=== PATIENT | female | born 1990 | race American Indian/Alaskan Native ===

== ENCOUNTER 2018-01-08 10:15 | Emergency (ER) | payer MEDICAID, OTHER ==
[2018-01-08 10:46] VITALS: BP 130/86
[2018-01-08] MEDS ORDERED: TORADOL IM ONE (11:13)
--- NOTE | 2018-01-08 12:14 | Emergency Department Report ---
ED ENT HPI - General Chief complaint: Dental/Oral Stated complaint: TOOTHACHE Time Seen by Provider: 01/08/18 11:11 Source: patient Mode of arrival: Ambulatory Limitations: No Limitations - History of Present Illness Initial comments: This is a 27-year-old female nontoxic, well nourished in appearance, no acute signs of distress presents to the ED with c/o of right-sided toothache 2 weeks. Patient denies any facial swelling, drooling, fever, chills, nausea, vomiting, headache or stiff neck. Patient denies falling over the dentist due to no availability's. Patient denies any allergies or significant past medical history. MD complaint: tooth pain -: week(s) (2) Location: tooth # (27) 1 - tothache Severity: mild Severity scale (0 -10): 8 Quality: aching Consistency: constant Improves with: none Worsens with: none Associated Symptoms: gum swelling, toothache. denies: fever, cough, pain with swallowing, sore throat, tinnitus, hearing loss, discharge from ear, rhinorrhea - Related Data Previous Rx's Medication Instructions Recorded Last Taken Type Fluconazole [Diflucan] 150 mg PO ONCE #1 tablet 05/09/15 05/09/15 Rx Nitrofurantoin [place]/M-Cryst 100 mg PO Q12HR #14 capsule 05/09/15 05/09/15 Rx [Macrobid] Amoxicillin/K Clav Tab [Augmentin 1 tab PO Q12HR #20 tab 01/08/18 Unknown Rx 875 mg] Chlorhexidine Mouthwash [Peridex] 15 ml MM BID 10 Days bottle 01/08/18 Unknown Rx Ibuprofen [Motrin] 600 mg PO Q8H PRN #30 tablet 01/08/18 Unknown Rx Allergies Allergy/AdvReac Type Severity Reaction Status Date / Time No Known Allergies Allergy Verified 03/28/16 01:37 ED Dental HPI - General Chief complaint: Dental/Oral Stated complaint: TOOTHACHE Time Seen by Provider: 01/08/18 11:11 Source: patient Mode of arrival: Ambulatory Limitations: No Limitations - Related Data Previous Rx's Medication Instructions Recorded Last Taken Type Fluconazole [Diflucan] 150 mg PO ONCE #1 tablet 05/09/15 05/09/15 Rx Nitrofurantoin [place]/M-Cryst 100 mg PO Q12HR #14 capsule 05/09/15 05/09/15 Rx [Macrobid] Amoxicillin/K Clav Tab [Augmentin 1 tab PO Q12HR #20 tab 01/08/18 Unknown Rx 875 mg] Chlorhexidine Mouthwash [Peridex] 15 ml MM BID 10 Days bottle 01/08/18 Unknown Rx Ibuprofen [Motrin] 600 mg PO Q8H PRN #30 tablet 01/08/18 Unknown Rx Allergies Allergy/AdvReac Type Severity Reaction Status Date / Time No Known Allergies Allergy Verified 03/28/16 01:37 ED Review of Systems ROS: Stated complaint: TOOTHACHE Other details as noted in HPI Constitutional: denies: chills, fever Eyes: denies: eye pain, eye discharge, vision change ENT: dental pain. denies: ear pain, throat pain Respiratory: denies: cough, shortness of breath, wheezing Cardiovascular: denies: chest pain, palpitations Endocrine: no symptoms reported Gastrointestinal: denies: abdominal pain, nausea, diarrhea Genitourinary: denies: urgency, dysuria, discharge Musculoskeletal: denies: back pain, joint swelling, arthralgia Skin: denies: rash, lesions Neurological: denies: headache, weakness, paresthesias Psychiatric: denies: anxiety, depression Hematological/Lymphatic: denies: easy bleeding, easy bruising ED Past Medical Hx - Past Medical History Hx Hypertension: No Hx Congestive Heart Failure: No Hx Diabetes: No Hx Deep Vein Thrombosis: No Hx Renal Disease: No Hx Sickle Cell Disease: No Hx Seizures: No Hx Asthma: No Hx COPD: No Hx HIV: No - Surgical History Additional Surgical History: D&C for - Social History Smoking Status: Never Smoker Substance Use Type: None - Medications Home Medications: Home Medications Medication Instructions Recorded Confirmed Last Taken Type Fluconazole [Diflucan] 150 mg PO ONCE #1 tablet 05/09/15 03/28/16 05/09/15 Rx Nitrofurantoin [place]/M-Cryst 100 mg PO Q12HR #14 capsule 05/09/15 03/28/16 Rx [Macrobid] Amoxicillin/K Clav Tab [Augmentin 1 tab PO Q12HR #20 tab 01/08/18 Unknown Rx 875 mg] Chlorhexidine Mouthwash [Peridex] 15 ml MM BID 10 Days bottle 01/08/18 Unknown Rx Ibuprofen [Motrin] 600 mg PO Q8H PRN #30 tablet 01/08/18 Unknown Rx ED Physical Exam - General Limitations: No Limitations General appearance: alert, in no apparent distress - Head Head exam: Present: atraumatic, normocephalic - Eye Eye exam: Present: normal appearance - ENT ENT exam: Present: mucous membranes moist, TM's normal bilaterally, normal external ear exam - Expanded ENT Exam Expanded Ear exam: Present: normal external inspection Mouth exam: Present: normal external inspection, tongue normal. Absent: drooling, trismus, muffled voice, tongue elevation, laceration Teeth exam: Present: dental caries, fractured tooth # (27), dental tenderness # (27), gingival enlargement, other (No facial swelling. No abscess. ) Throat exam: Positive: normal inspection, other (Uvula midline. ). Negative: tonsillar erythema, tonsillomegaly, tonsillar exudate, R peritonsillar mass, L peritonsillar mass - Neck Neck exam: Present: normal inspection, full ROM. Absent: tenderness, meningismus, lymphadenopathy, thyromegaly - Respiratory Respiratory exam: Present: normal lung sounds bilaterally. Absent: respiratory distress - Cardiovascular Cardiovascular Exam: Present: regular rate, normal rhythm. Absent: systolic murmur, diastolic murmur, rubs, gallop - GI/Abdominal GI/Abdominal exam: Present: soft, normal bowel sounds - Extremities Exam Extremities exam: Present: normal inspection - Back Exam Back exam: Present: normal inspection - Neurological Exam Neurological exam: Present: alert, oriented X3 - Psychiatric Psychiatric exam: Present: normal affect, normal mood - Skin Skin exam: Present: warm, dry, intact, normal color. Absent: rash ED Course Vital Signs 01/08/18 10:43 Temperature 98.6 F Pulse Rate 80 Respiratory 16 Rate Blood Pressure 130/86 O2 Sat by Pulse 100 Oximetry - Reevaluation(s) Reevaluation #1: 01/08/18 12:11 Patient is speaking in full sentences with no signs of distress noted. Critical care attestation.: If time is entered above; I have spent that time in minutes in the direct care of this critically ill patient, excluding procedure time. ED Disposition Clinical Impression: Dentin caries, Gingivitis Disposition: DC- TO HOME OR SELFCARE Is pt being admited?: No Does the pt Need Aspirin: No Condition: Stable Instructions: Dental Caries (ED), Gingivitis (ED) Additional Instructions: Follow-up with a dentist in 3-5 days or if symptoms worsen and continue return to emergency room as soon as possible. Prescriptions: Amoxicillin/K Clav Tab [Augmentin 875 mg] 1 tab PO Q12HR #20 tab Chlorhexidine Mouthwash [Peridex] 15 ml MM BID 10 Days bottle Ibuprofen [Motrin] 600 mg PO Q8H PRN #30 tablet PRN Reason: Pain Referrals: PRIMARY CARE, [Primary Care Provider] - 3-5 Days [facility] [Outside] - 3-5 Days MELODY KHANNA MD [Staff Physician] - 3-5 Days Forms: Work/School Release Form(ED)
== END 2018-01-08 12:18 | disposition home or self-care (01) ==
LOC: ED 10:15
DX: K05.10 Chronic gingivitis, plaque induced (principal)
CPT/HCPCS: 96372; 99282; J1885

== ENCOUNTER 2018-04-03 17:38 | Emergency (ER) | payer MEDICAID ==
[2018-04-03 17:43] VITALS: BP 123/79
== END 2018-04-03 20:55 | disposition left against medical advice (07) ==
LOC: ED 17:38
DX: K08.89 Other specified disorders of teeth and supporting structures (principal); Z53.21 Procedure and treatment not carried out due to patient leaving prior to being seen by health care provider

== ENCOUNTER 2018-04-20 18:56 | Emergency (ER) | payer MEDICAID ==
[2018-04-20 20:10] VITALS: BP 132/91
[2018-04-20] MEDS ORDERED: MOTRIN PO ONE (21:33)
[2018-04-20] MEDS ORDERED: TORADOL IM ONE (21:45)
[2018-04-20] MEDS ORDERED: NORCO 7.5/325 PO ONE (21:45)
--- NOTE | 2018-04-20 22:10 | Emergency Department Report ---
ED ENT HPI - General Chief complaint: Dental/Oral Stated complaint: TOOTH PAIN Time Seen by Provider: 04/20/18 21:15 Source: patient Mode of arrival: Ambulatory Limitations: No Limitations - History of Present Illness Initial comments: This is a 27-year-old female brought by mother nontoxic, well nourished in appearance, no acute signs of distress presents to the ED with c/o of left lower toothache status post tooth extraction that occurred today. Patient stated that she has been prescribed [place] 5 mg which has not been helping her for pain and patient is expressing pain now. Patient describes toothache as aching level of 8 out of 10. Patient denies any facial swelling. Patient denies any numbness, tingling, fever, chills, headache, stiff neck, abdominal pain, chest pain, shortness of breath. Patient denies any drug allergies or significant past medical history. MD complaint: tooth pain -: This afternoon 1 - pain in here with extracted tooth Severity: mild Severity scale (0 -10): 8 Quality: aching Consistency: constant Improves with: none Worsens with: none Associated Symptoms: gum swelling. denies: fever, cough, toothache, pain with swallowing, sore throat, tinnitus, hearing loss, discharge from ear, rhinorrhea - Related Data Previous Rx's Medication Instructions Recorded Last Taken Type Fluconazole [Diflucan] 150 mg PO ONCE #1 tablet 05/09/15 05/09/15 Rx Nitrofurantoin [place]/M-Cryst 100 mg PO Q12HR #14 capsule 05/09/15 05/09/15 Rx [Macrobid] Amoxicillin/K Clav Tab [Augmentin 1 tab PO Q12HR #20 tab 01/08/18 Unknown Rx 875 mg] Chlorhexidine Mouthwash [Peridex] 15 ml MM BID 10 Days bottle 01/08/18 Unknown Rx Ibuprofen [Motrin] 600 mg PO Q8H PRN #30 tablet 01/08/18 Unknown Rx HYDROcodone/APAP 10-325 [[place] 1 each PO Q6HR PRN #15 tablet 04/20/18 Unknown Rx 10/325] Ibuprofen [Motrin] 600 mg PO Q8H PRN #30 tablet 04/20/18 Unknown Rx Allergies Allergy/AdvReac Type Severity Reaction Status Date / Time No Known Allergies Allergy Verified 03/28/16 01:37 ED Dental HPI - General Chief complaint: Dental/Oral Stated complaint: TOOTH PAIN Time Seen by Provider: 04/20/18 21:15 Source: patient Mode of arrival: Ambulatory Limitations: No Limitations - Related Data Previous Rx's Medication Instructions Recorded Last Taken Type Fluconazole [Diflucan] 150 mg PO ONCE #1 tablet 05/09/15 05/09/15 Rx Nitrofurantoin [place]/M-Cryst 100 mg PO Q12HR #14 capsule 05/09/15 05/09/15 Rx [Macrobid] Amoxicillin/K Clav Tab [Augmentin 1 tab PO Q12HR #20 tab 01/08/18 Unknown Rx 875 mg] Chlorhexidine Mouthwash [Peridex] 15 ml MM BID 10 Days bottle 01/08/18 Unknown Rx Ibuprofen [Motrin] 600 mg PO Q8H PRN #30 tablet 01/08/18 Unknown Rx HYDROcodone/APAP 10-325 [[place] 1 each PO Q6HR PRN #15 tablet 04/20/18 Unknown Rx 10/325] Ibuprofen [Motrin] 600 mg PO Q8H PRN #30 tablet 04/20/18 Unknown Rx Allergies Allergy/AdvReac Type Severity Reaction Status Date / Time No Known Allergies Allergy Verified 03/28/16 01:37 ED Review of Systems ROS: Stated complaint: TOOTH PAIN Other details as noted in HPI Constitutional: denies: chills, fever Eyes: denies: eye pain, eye discharge, vision change ENT: denies: ear pain, throat pain Respiratory: denies: cough, shortness of breath, wheezing Cardiovascular: denies: chest pain, palpitations Endocrine: no symptoms reported Gastrointestinal: denies: abdominal pain, nausea, diarrhea Genitourinary: denies: urgency, dysuria, discharge Musculoskeletal: denies: back pain, joint swelling, arthralgia Skin: denies: rash, lesions Neurological: denies: headache, weakness, paresthesias Psychiatric: denies: anxiety, depression Hematological/Lymphatic: denies: easy bleeding, easy bruising ED Past Medical Hx - Past Medical History Hx Hypertension: No Hx Congestive Heart Failure: No Hx Diabetes: No Hx Deep Vein Thrombosis: No Hx Renal Disease: No Hx Sickle Cell Disease: No Hx Seizures: No Hx Asthma: No Hx COPD: No Hx HIV: No - Surgical History Additional Surgical History: D&C for - Social History Smoking Status: Never Smoker Substance Use Type: None - Medications Home Medications: Home Medications Medication Instructions Recorded Confirmed Last Taken Type Fluconazole [Diflucan] 150 mg PO ONCE #1 tablet 05/09/15 03/28/16 05/09/15 Rx Nitrofurantoin [place]/M-Cryst 100 mg PO Q12HR #14 capsule 05/09/15 03/28/16 Rx [Macrobid] Amoxicillin/K Clav Tab [Augmentin 1 tab PO Q12HR #20 tab 01/08/18 Unknown Rx 875 mg] Chlorhexidine Mouthwash [Peridex] 15 ml MM BID 10 Days bottle 01/08/18 Unknown Rx Ibuprofen [Motrin] 600 mg PO Q8H PRN #30 tablet 01/08/18 Unknown Rx HYDROcodone/APAP 10-325 [[place] 1 each PO Q6HR PRN #15 tablet 04/20/18 Unknown Rx 10/325] Ibuprofen [Motrin] 600 mg PO Q8H PRN #30 tablet 04/20/18 Unknown Rx ED Physical Exam - General Limitations: No Limitations General appearance: alert, in no apparent distress - Head Head exam: Present: atraumatic, normocephalic - Eye Eye exam: Present: normal appearance Pupils: Present: normal accommodation - ENT ENT exam: Present: mucous membranes moist, TM's normal bilaterally, normal external ear exam - Expanded ENT Exam Expanded Ear exam: Present: normal external inspection Mouth exam: Present: normal external inspection, tongue normal. Absent: drooling, trismus, muffled voice, tongue elevation, laceration Teeth exam: Present: normal inspection, other (suture strings present in the area of extracted tooth). Absent: dental caries, fractured tooth #, dental tenderness #, gingival enlargement Throat exam: Positive: normal inspection, other (Uvula midline. No abscess or swelling noted. ). Negative: tonsillar erythema, tonsillomegaly, tonsillar exudate, R peritonsillar mass, L peritonsillar mass - Neck Neck exam: Present: normal inspection, full ROM. Absent: tenderness, meningismus, lymphadenopathy - Respiratory Respiratory exam: Present: normal lung sounds bilaterally. Absent: respiratory distress - Cardiovascular Cardiovascular Exam: Present: regular rate, normal rhythm. Absent: systolic murmur, diastolic murmur, rubs, gallop - GI/Abdominal GI/Abdominal exam: Present: soft, normal bowel sounds - Extremities Exam Extremities exam: Present: normal inspection - Back Exam Back exam: Present: normal inspection - Neurological Exam Neurological exam: Present: alert, oriented X3 - Psychiatric Psychiatric exam: Present: normal affect, normal mood - Skin Skin exam: Present: warm, dry, intact, normal color. Absent: rash ED Course Vital Signs 04/20/18 20:07 Temperature 97.8 F Pulse Rate 70 Respiratory 16 Rate Blood Pressure 132/91 O2 Sat by Pulse 97 Oximetry - Reevaluation(s) Reevaluation #1: 04/20/18 22:09 Patient is speaking in full sentences with no signs of distress noted. ED Medical Decision Making - Medical Decision Making Patient received Toradol and [place] in the ED which stated that symptoms has resolved and is subsiding. Patient was instructed not to operate any machinery as a discharge due to possible drowsiness and patient's mother is currently the boom truck driver states short of the patient home. At time of discharge, the patient does not seem toxic or ill in appearance. No acute signs of distress noted. Patient agrees to discharge treatment plan of care. No further questions noted by the patient. Critical care attestation.: If time is entered above; I have spent that time in minutes in the direct care of this critically ill patient, excluding procedure time. ED Disposition Clinical Impression: Pain, dental Disposition: DC-01 TO HOME OR SELFCARE Is pt being admited?: No Does the pt Need Aspirin: No Condition: Stable Additional Instructions: Follow-up with a dentist in 3-5 days or if symptoms worsen and continue return to emergency room as soon as possible. Stop taking [place] 5 mg that was prescribed to you and taking [place] 10 mg for pain as needed as prescribed. Prescriptions: HYDROcodone/APAP 10-325 [[place] 10/325] 1 each PO Q6HR PRN #15 tablet PRN Reason: Pain Ibuprofen [Motrin] 600 mg PO Q8H PRN #30 tablet PRN Reason: Pain Referrals: PRIMARY CARE, [Primary Care Provider] - 3-5 Days MELODY KHANNA MD [Staff Physician] - 3-5 Days [facility] [Outside] - 3-5 Days Forms: Work/School Release Form(ED)
== END 2018-04-20 22:20 | disposition home or self-care (01) ==
LOC: ED 18:56
DX: K08.89 Other specified disorders of teeth and supporting structures (principal)
CPT/HCPCS: 96372; 99282; J1885

== ENCOUNTER 2018-06-26 07:20 | Emergency (ER) | payer MEDICAID | END 2018-06-26 07:25 | disposition left against medical advice (07) | LOC: ED 07:20 | DX: K08.89 Other specified disorders of teeth and supporting structures (principal); Z53.21 Procedure and treatment not carried out due to patient leaving prior to being seen by health care provider ==

== ENCOUNTER 2018-06-29 15:07 | Emergency (ER) | payer MEDICAID ==
[2018-06-29 15:18] VITALS: BP 119/81
== END 2018-06-29 15:40 | disposition left against medical advice (07) ==
LOC: ED 15:07
DX: K08.89 Other specified disorders of teeth and supporting structures (principal); Z53.21 Procedure and treatment not carried out due to patient leaving prior to being seen by health care provider

== ENCOUNTER 2018-07-24 09:56 | Emergency (ER) | payer MEDICAID ==
[2018-07-24 10:06] VITALS: BP 121/80
--- NOTE | 2018-07-24 10:59 | Emergency Department Report ---
ED Recheck HPI - General Chief Complaint: Dental/Oral Stated Complaint: BOTTOM RT TOOTH ACHE Time Seen by Provider: 07/24/18 10:39 Source: patient Mode of arrival: Ambulatory Limitations: No Limitations - Related Data Previous Rx's Medication Instructions Recorded Last Taken Type Fluconazole [Diflucan] 150 mg PO ONCE #1 tablet 05/09/15 05/09/15 Rx Nitrofurantoin [place]/M-Cryst 100 mg PO Q12HR #14 capsule 05/09/15 05/09/15 Rx [Macrobid] Amoxicillin/K Clav Tab [Augmentin 1 tab PO Q12HR #20 tab 01/08/18 Unknown Rx 875 mg] Chlorhexidine Mouthwash [Peridex] 15 ml MM BID 10 Days bottle 01/08/18 Unknown Rx Ibuprofen [Motrin] 600 mg PO Q8H PRN #30 tablet 01/08/18 Unknown Rx HYDROcodone/APAP 10-325 [[place] 1 each PO Q6HR PRN #15 tablet 04/20/18 Unknown Rx 10/325] Ibuprofen [Motrin] 600 mg PO Q8H PRN #30 tablet 04/20/18 Unknown Rx Allergies Allergy/AdvReac Type Severity Reaction Status Date / Time No Known Allergies Allergy Verified 06/29/18 15:18 ED Review of Systems ROS: Stated complaint: BOTTOM RT TOOTH ACHE Other details as noted in HPI ED Past Medical Hx - Past Medical History Previous Medical History?: No Hx Hypertension: No Hx Congestive Heart Failure: No Hx Diabetes: No Hx Deep Vein Thrombosis: No Hx Renal Disease: No Hx Sickle Cell Disease: No Hx Seizures: No Hx Asthma: No Hx COPD: No Hx HIV: No - Surgical History Past Surgical History?: Yes Additional Surgical History: D&C for - Social History Smoking Status: Never Smoker Substance Use Type: None - Medications Home Medications: Home Medications Medication Instructions Recorded Confirmed Last Taken Type Fluconazole [Diflucan] 150 mg PO ONCE #1 tablet 05/09/15 03/28/16 05/09/15 Rx Nitrofurantoin [place]/M-Cryst 100 mg PO Q12HR #14 capsule 05/09/15 03/28/16 Rx [Macrobid] Amoxicillin/K Clav Tab [Augmentin 1 tab PO Q12HR #20 tab 01/08/18 Unknown Rx 875 mg] Chlorhexidine Mouthwash [Peridex] 15 ml MM BID 10 Days bottle 01/08/18 Unknown Rx Ibuprofen [Motrin] 600 mg PO Q8H PRN #30 tablet 01/08/18 Unknown Rx HYDROcodone/APAP 10-325 [[place] 1 each PO Q6HR PRN #15 tablet 04/20/18 Unknown Rx 10/325] Ibuprofen [Motrin] 600 mg PO Q8H PRN #30 tablet 04/20/18 Unknown Rx ED Physical Exam - General Limitations: No Limitations ED Course Vital Signs 07/24/18 10:04 Temperature 99.0 F Pulse Rate 82 Respiratory 20 Rate Blood Pressure 121/80 O2 Sat by Pulse 98 Oximetry Critical care attestation.: If time is entered above; I have spent that time in minutes in the direct care of this critically ill patient, excluding procedure time. ED Disposition Condition: Stable Referrals: PRIMARY CARE, [Primary Care Provider] - 3-5 Days
--- NOTE | 2018-07-24 11:00 | Emergency Department Report ---
HPI - General Chief Complaint: Dental/Oral Time Seen by Provider: 07/24/18 10:39 - HPI HPI: This is a 27-year-old female here reported that she is having right lower toothache and left upper toothache. She said this is been ongoing and she just got her insurance card and she will need to schedule an appointment for a dentist. He has she said the pain has been going on for 2 weeks off and on and right now it is 10/10. She reports that she has multiple missing teeth. Pain is achy. Denies any nasal congestion, drainage or sore throat. Denies any cough, shortness of breath or chest pain. She says she took ibuprofen for pain with no relief. No alleviated factors but reports pain is worse when she opens her Ben when she eats. ED Past Medical Hx - Past Medical History Previous Medical History?: No Hx Hypertension: No Hx Congestive Heart Failure: No Hx Diabetes: No Hx Deep Vein Thrombosis: No Hx Renal Disease: No Hx Sickle Cell Disease: No Hx Seizures: No Hx Asthma: No Hx COPD: No Hx HIV: No - Surgical History Past Surgical History?: Yes Additional Surgical History: D&C for - Family History Family history: hypertension - Social History Smoking Status: Never Smoker Substance Use Type: None - Medications Home Medications: Home Medications Medication Instructions Recorded Confirmed Last Taken Type Fluconazole [Diflucan] 150 mg PO ONCE #1 tablet 05/09/15 03/28/16 05/09/15 Rx Nitrofurantoin [place]/M-Cryst 100 mg PO Q12HR #14 capsule 05/09/15 03/28/16 Rx [Macrobid] Amoxicillin/K Clav Tab [Augmentin 1 tab PO Q12HR #20 tab 01/08/18 Unknown Rx 875 mg] Chlorhexidine Mouthwash [Peridex] 15 ml MM BID 10 Days bottle 01/08/18 Unknown Rx Ibuprofen [Motrin] 600 mg PO Q8H PRN #30 tablet 01/08/18 Unknown Rx HYDROcodone/APAP 10-325 [[place] 1 each PO Q6HR PRN #15 tablet 04/20/18 Unknown Rx 10/325] Ibuprofen [Motrin] 600 mg PO Q8H PRN #30 tablet 04/20/18 Unknown Rx Acetaminophen/Codeine [Tylenol 1 tab PO Q6H PRN #14 tab 07/24/18 Unknown Rx /Codeine # 3 tab] Clindamycin [Clindamycin CAP] 300 mg PO Q8H 10 Days #30 cap 07/24/18 Unknown Rx Ibuprofen [Motrin] 800 mg PO Q8HR PRN #15 tablet 07/24/18 Unknown Rx ED Review of Systems ROS: Stated complaint: BOTTOM RT TOOTH ACHE Other details as noted in HPI Constitutional: denies: chills, fever Eyes: denies: eye pain, eye discharge, vision change ENT: dental pain. denies: ear pain, throat pain, hearing loss, congestion Respiratory: denies: cough, shortness of breath, SOB with exertion, SOB at rest , wheezing Cardiovascular: denies: chest pain, palpitations, edema, syncope Musculoskeletal: denies: back pain, arthralgia Skin: denies: rash, lesions Neurological: denies: headache Psychiatric: denies: depression Physical Exam - Physical Exam Vital Signs: Vital Signs 07/24/18 10:04 Temperature 99.0 F Pulse Rate 82 Respiratory 20 Rate Blood Pressure 121/80 O2 Sat by Pulse 98 Oximetry General: This is a 27-year-old female well-nourished well-developed in no acute distress Physical Exam: Head: Normocephalic atraumatic. Scalp examination and normal. Nontender to palpate. No abrasion, contusion or hematoma noted. Mouth: Oral mucosa moist, tongue is normal, uvula is midline, no [employer] or drooling , oral airways patent and uvula is midline. Tooth #15 with some tenderness to palpate with cavity. Positive gingivitis notedn 29-positive cavity and tenderness to palpate around gumline. She has multiple cavities and multiple missing teeth. Neck: No breathing or stridor. Supple, no tracheal deviation, no lymphadenopathy and full range of motion Ears: Bilateral TMs pearly perez and bilateral EAC normal exam. Triglycerides nontender to palpate, no mastoid bone tenderness. Nose: Nasal mucosa without any erythema or swelling or drainage. Bilateral frontal and mastoid sinuses nontender to palpate. Nasal septum normal and nontender to palpate Eyes: Bilateral pupils equal and reactive to light, conjunctival injection or icterus. Bilateral EOM intact and normal accommodation. Lids are normal. She has swelling below her lower lids that is not erythema and nontender to palpate. No induration and no sign of cellulitis. Skin: Clean dry and intact, no rash or lesions. Extremity: No cce. + 2 pulses in all extremities, no neurovascular compromise Mood: Normal mood and behavior ED Course Vital Signs 07/24/18 10:04 Temperature 99.0 F Pulse Rate 82 Respiratory 20 Rate Blood Pressure 121/80 O2 Sat by Pulse 98 Oximetry - Reevaluation(s) Reevaluation #1: 07/24/18 12:47 Is given Motrin 80 mg a toothache which helped her pain and she was started on clindamycin 300 mg by mouth for gingivitis and cavities. ED Medical Decision Making - Medical Decision Making This is a 27-year-old female here report that she is having dental pain and need to be evaluated Assessment/plan 1: Dental caries and gingivitis-patient is started on clindamycin 300 mg and will send home on clindamycin. 2: Toothache-started on Motrin 800 mg by mouth for relief of pain and will send him home on Motrin and Tylenol 3. Patient educated on diagnosis, medication and treatment plan and I discussed with her she needs to follow up with dentist to call [facility] to schedule an appointment for evaluation and treatment of gingivitis and dental cavities. She voiced understanding and discharged home in stable condition. Vital signs stable she is afebrile and pain is better. She was given prescription for Motrin, Tylenol No. 3 and clindamycin Critical care attestation.: If time is entered above; I have spent that time in minutes in the direct care of this critically ill patient, excluding procedure time. ED Disposition Clinical Impression: Toothache, Gingivitis, Dental caries Disposition: - TO HOME OR SELFCARE Is pt being admited?: No Does the pt Need Aspirin: No Condition: Stable Instructions: Gingivitis (ED), Dental Caries (ED), Toothache (ED) Additional Instructions: Please follow up with dentist as discussed. See alternative dentist and discharge instruction paperwork if needed. Take Motrin for mild to moderate pain and please take this medication with food. Take Tylenol 3 for severe pain and please do not drive or operate heavy machinery while taking this medication. Take clindamycin as prescribed. Please see floss twice daily Gargle listerine mouthwash twice daily Referrals: PRIMARY CARE, [Primary Care Provider] - 3-5 Days [facility] [Outside] - 3-5 Days [facility] [Outside] - 3-5 Days Forms: Accompanied Note, Work/School Release Form(ED)
[2018-07-24] MEDS ORDERED: MOTRIN PO ONE (11:07)
[2018-07-24] MEDS ORDERED: CLEOCIN PO ONE (11:07)
== END 2018-07-24 13:19 | disposition home or self-care (01) ==
LOC: ED 09:56
DX: K08.89 Other specified disorders of teeth and supporting structures (principal); K02.9 Dental caries, unspecified
CPT/HCPCS: 99282

== ENCOUNTER 2019-03-16 16:24 | Emergency (ER) | payer MEDICAID ==
--- NOTE | 2019-03-16 18:19 | Emergency Department Report ---
Chief Complaint: Dental/Oral Stated Complaint: TOOTHACHE Time Seen by Provider: 03/16/19 18:17 - HPI History of Present Illness: top left dental pain AND weakness/exhausted pmh last month VSS pmh none rx none psh none no c/e/drugs mse MSE screening note: Focused history and physical exam performed. Due to findings the following was ordered: ED Disposition for MSE Condition: Stable
[2019-03-16 19:27] LABS: Hematocrit 39.1 % (30.3-42.9); Hemoglobin 12.7 gm/dl (10.1-14.3); Mean Corpuscular HGB Conc 33 % (30-34); Mean Corpuscular Volume 84 fl (79-97); Platelet Count 236 K/mm3 (140-440); Red Blood Count 4.64 M/mm3 (3.65-5.03); Red Cell Distribution Width 14.8 % (13.2-15.2)
[2019-03-16 19:48] LABS: BUN/Creatinine Ratio 14; Blood Urea Nitrogen 10 mg/dL (7-17); Calcium 9.6 mg/dL (8.4-10.2); Hemolysis Index 11
[2019-03-16 20:05] LABS: Basophils % (Auto) 0.6 % (0.0-1.8); Eosinophils # (Auto) 0.5 K/mm3 (0.0-0.4); Eosinophils % (Auto) 5.9 % (0.0-4.3); Lymphocytes # (Auto) 2.4 K/mm3 (1.2-5.4); Lymphocytes % (Auto) 30.3 % (13.4-35.0); Monocytes # (Auto) 0.5 K/mm3 (0.0-0.8); Monocytes % (Auto) 6.8 % (0.0-7.3)
[2019-03-16 20:35] LABS: Bacteria,Urine 1+ /HPF (Negative); Bilirubin,Urine NEG (Negative); Blood,Urine NEG (Negative); Color,Urine Yellow (Yellow); Mucus,Urine 3+ /HPF; Protein,Urine <15 mg/dL mg/dL (Negative)
[2019-03-16 20:42] LABS: HCG Qualitative,Urine Negative (Negative)
--- NOTE | 2019-03-16 21:01 | Emergency Department Report ---
ED ENT HPI - General Chief complaint: Dental/Oral Stated complaint: TOOTHACHE Time Seen by Provider: 03/16/19 18:17 Source: patient Mode of arrival: Ambulatory Limitations: No Limitations - History of Present Illness Initial comments: Patient is a 28-year-old female with no past medical history presents to the ED with complaint of acute onset assistance area maxillary premolar molar toothaches and swollen gums as well as headache for the last 1 month. Patient states that she's never been able to see a dentist because of her schedule. Patient also complains of persistent generalized weakness and fatigue for the last 2 weeks. Patient denies fever, chills, nausea, vomiting, dizziness, sore throat, nasal and sinus congestion, neck pain, chronic, change in urination, chest pain or shortness of breath and abdominal pain. MD complaint: tooth pain, other (headache) -: Gradual, week(s) (4) Location: tooth # (bilateral maxillary premolar and molar toothaches, swollen gums) Severity: moderate Severity scale (0 -10): 6 Quality: aching, sharp, constant Consistency: constant Improves with: none Worsens with: eating Context- Dental: history of dental caries, poor dental care Associated Symptoms: gum swelling, toothache. denies: fever, cough, pain with swallowing, sore throat, tinnitus, hearing loss, discharge from ear, rhinorrhea - Related Data Previous Rx's Medication Instructions Recorded Last Taken Type Acetaminophen/Codeine [Tylenol 1 tab PO Q6H PRN 3 Days #12 tab 03/16/19 Unknown Rx /Codeine # 3 tab] Ketorolac [Toradol] 10 mg PO Q6H PRN #20 tablet 03/16/19 Unknown Rx cephALEXin [Keflex] 500 mg PO Q6HR #40 cap 03/16/19 Unknown Rx Allergies Allergy/AdvReac Type Severity Reaction Status Date / Time No Known Allergies Allergy Verified 03/16/19 16:27 ED Dental HPI - General Chief complaint: Dental/Oral Stated complaint: TOOTHACHE Time Seen by Provider: 03/16/19 18:17 Source: patient Mode of arrival: Ambulatory Limitations: No Limitations - History of Present Illness Initial comments: Patient is a 28-year-old female with no past medical history presents to the ED with complaint of acute onset assistance area maxillary premolar molar toothaches and swollen gums as well as headache for the last 1 month. Patient states that she's never been able to see a dentist because of her schedule. Patient also complains of persistent generalized weakness and fatigue for the last 2 weeks. Patient denies fever, chills, nausea, vomiting, dizziness, sore throat, nasal and sinus congestion, neck pain, chronic, change in urination, chest pain or shortness of breath and abdominal pain. MD complaint: tooth pain, other (headache) -: Gradual, week(s) (4) 1 - swollen and painful gums, toothache 2 - swollen painful gums, toothache Severity: moderate Quality: aching, sharp Consistency: constant Improves with: none Worsens with: eating, chewing, hot/cold liquids Context- Dental: history of dental caries, poor dental care Dental Associated Symptons: Yes: Headache, Gum Swelling. No: Earache, Sore Throat, Fever - Related Data Previous Rx's Medication Instructions Recorded Last Taken Type Acetaminophen/Codeine [Tylenol 1 tab PO Q6H PRN 3 Days #12 tab 03/16/19 Unknown Rx /Codeine # 3 tab] Ketorolac [Toradol] 10 mg PO Q6H PRN #20 tablet 03/16/19 Unknown Rx cephALEXin [Keflex] 500 mg PO Q6HR #40 cap 03/16/19 Unknown Rx Allergies Allergy/AdvReac Type Severity Reaction Status Date / Time No Known Allergies Allergy Verified 03/16/19 16:27 ED Review of Systems ROS: Stated complaint: TOOTHACHE Other details as noted in HPI Comment: All other systems reviewed and negative Constitutional: no symptoms reported, see HPI. denies: chills, diaphoresis, fever, malaise, weakness Eyes: as per HPI. denies: eye pain, eye discharge, vision change ENT: as per HPI, dental pain, other (swollen gums). denies: ear pain, throat pain, hearing loss, epistaxis, congestion Respiratory: no symptoms reported, see HPI. denies: cough, orthopnea, shortness of breath, SOB with exertion, SOB at rest, wheezing Cardiovascular: as per HPI. denies: chest pain, palpitations, syncope, paroxysmal nocturnal dyspnea Endocrine: no symptoms reported, see HPI. denies: excessive sweating, flushing, intolerance to cold, increased hunger, increased thirst, increased urine Gastrointestinal: as per HPI. denies: abdominal pain, nausea, vomiting, diarrhea, constipation, hematemesis, hematochezia Genitourinary: as per HPI. denies: urgency, dysuria, hematuria, discharge, dyspareunia Musculoskeletal: as per HPI. denies: back pain, joint swelling, arthralgia, myalgia Skin: as per HPI. denies: rash, lesions, change in color, change in hair/nails Neurological: as per HPI, headache. denies: weakness, numbness, paresthesias, confusion, vertigo Psychiatric: as per HPI. denies: anxiety Hematological/Lymphatic: as per HPI ED Past Medical Hx - Past Medical History Previous Medical History?: No Hx Hypertension: No Hx Congestive Heart Failure: No Hx Diabetes: No Hx Deep Vein Thrombosis: No Hx Renal Disease: No Hx Sickle Cell Disease: No Hx Seizures: No Hx Asthma: No Hx COPD: No Hx HIV: No - Surgical History Additional Surgical History: D&C for - Social History Smoking Status: Never Smoker - Medications Home Medications: Home Medications Medication Instructions Recorded Confirmed Last Taken Type Acetaminophen/Codeine [Tylenol 1 tab PO Q6H PRN 3 Days #12 tab 03/16/19 Unknown Rx /Codeine # 3 tab] Ketorolac [Toradol] 10 mg PO Q6H PRN #20 tablet 03/16/19 Unknown Rx cephALEXin [Keflex] 500 mg PO Q6HR #40 cap 03/16/19 Unknown Rx ED Physical Exam - General Limitations: No Limitations General appearance: alert, in no apparent distress, anxious - Head Head exam: Present: atraumatic, normocephalic, normal inspection - Eye Eye exam: Present: normal appearance, PERRL, EOMI Pupils: Present: normal accommodation - ENT ENT exam: Present: normal exam, normal orophraynx, TM's normal bilaterally, normal external ear exam, other (Moderately swollen and tender maxillary gums bilaterally, palpable premolar and molar teeth tenderness) - Neck Neck exam: Present: normal inspection, full ROM. Absent: tenderness, meningismus, lymphadenopathy - Respiratory Respiratory exam: Present: normal lung sounds bilaterally. Absent: respiratory distress, wheezes, rales, rhonchi, chest wall tenderness, accessory muscle use, decreased breath sounds - Cardiovascular Cardiovascular Exam: Present: regular rate, normal rhythm, normal heart sounds - GI/Abdominal GI/Abdominal exam: Present: soft, normal bowel sounds. Absent: distended, tenderness, guarding, hyperactive bowel sounds, hypoactive bowel sounds, organomegaly, bruit, pulsatile mass - Extremities Exam Extremities exam: Present: normal inspection, full ROM, normal capillary refill - Back Exam Back exam: Present: normal inspection, full ROM. Absent: tenderness, CVA tenderness (R), CVA tenderness (L), muscle spasm, paraspinal tenderness - Neurological Exam Neurological exam: Present: alert, oriented X3, CN II-XII intact, normal gait, reflexes normal - Psychiatric Psychiatric exam: Present: normal affect - Skin Skin exam: Present: warm, dry, intact, normal color ED Course Vital Signs 03/16/19 18:17 Temperature 98 F Pulse Rate 89 Respiratory 18 Rate Blood Pressure 121/80 [Right] O2 Sat by Pulse 98 Oximetry - Reevaluation(s) Reevaluation #1: 03/16/19 21:05 Patient is alert and oriented 3 and is not in distress with normal vital signs. Lab test results were reviewed and are unremarkable. Based on the physical exam findings, the patient was discharged home on medications including pain medications and antibiotics prophylactically and advised to follow-up with a dentist in 7-10 days for reevaluation. Patient advised to return to the ED immediately if symptoms get worse. ED Medical Decision Making - Lab Data Result diagrams: 03/16/19 19:03 03/16/19 19:03 - Differential Diagnosis dental abscess, dental caries, chronic gingivitis Critical care attestation.: If time is entered above; I have spent that time in minutes in the direct care of this critically ill patient, excluding procedure time. ED Disposition Clinical Impression: Dental abscess, Dental caries, Acute gingivitis, Acute urinary tract infection Disposition: TO HOME OR SELFCARE Is pt being admited?: No Does the pt Need Aspirin: No Condition: Stable Instructions: Urinary Tract Infection in Women (ED), Dental Abscess (ED), Gingivitis (ED), Dental Caries (ED) Additional Instructions: Take medications with food, drink plenty of fluids and follow up with your primary care physician or dentist as advised. Return to the ED immediately if symptoms get worse. Prescriptions: cephALEXin [Keflex] 500 mg PO Q6HR #40 cap Ketorolac [Toradol] 10 mg PO Q6H PRN #20 tablet PRN Reason: Pain Acetaminophen/Codeine [Tylenol /Codeine # 3 tab] 1 tab PO Q6H PRN 3 Days #12 tab PRN Reason: Pain , Severe (7-10) Referrals: SHERIN MCKEON MD [Primary Care Provider] - 3-5 Days Time of Disposition: 21:14 Print Language: ICELANDIC
[2019-03-16 21:28] LABS: Total Cells Counted 100
[2019-03-16 21:29] LABS: Large Platelets 1+; Platelet Estimate Consistent w Auto; RBC Morphology Normal
[2019-03-16 21:31] VITALS: BP 127/97
== END 2019-03-16 21:31 | disposition home or self-care (01) ==
LOC: ED 16:24
DX: K04.7 Periapical abscess without sinus (principal); K02.9 Dental caries, unspecified; K05.10 Chronic gingivitis, plaque induced; N39.0 Urinary tract infection, site not specified
CPT/HCPCS: 36415; 80048; 81001; 81025; 85007; 85025

== ENCOUNTER 2020-11-28 03:37 | Emergency (ER) | payer MEDICAID ==
[2020-11-28 04:41] LABS: Blood Urea Nitrogen 14 mg/dL (7-17); Calcium 8.9 mg/dL (8.4-10.2); Hemolysis Index 8
[2020-11-28 04:51] LABS: Hematocrit 38.2 % (30.3-42.9); Hemoglobin 12.4 gm/dl (10.1-14.3); Mean Corpuscular HGB Conc 32 % (30-34); Mean Corpuscular Volume 84 fl (79-97); Platelet Count 267 K/mm3 (140-440); Red Blood Count 4.55 M/mm3 (3.65-5.03); Red Cell Distribution Width 15.1 % (13.2-15.2)
[2020-11-28 04:51] LABS: Bilirubin,Urine NEG (Negative); Blood,Urine LG (Negative); Color,Urine Yellow (Yellow); Mucus,Urine 2+ /HPF; RBC,Urine > 182.0 /HPF (0.0-6.0); Urobilinogen,Urine < 2.0 mg/dL (<2.0)
[2020-11-28 04:52] LABS: Eosinophils # (Auto) 0.4 K/mm3 (0.0-0.4); Lymphocytes # (Auto) 1.5 K/mm3 (1.2-5.4); Lymphocytes % (Auto) 23.2 % (13.4-35.0); Monocytes # (Auto) 0.2 K/mm3 (0.0-0.8); Monocytes % (Auto) 2.5 % (0.0-7.3)
[2020-11-28 04:57] VITALS: BP 139/94
--- NOTE | 2020-11-28 05:00 | Emergency Department Report ---
ED Female HPI - General Chief complaint: Vaginal Bleeding Stated complaint: VAGINAL BLEEDING Time Seen by Provider: 11/28/20 03:50 Source: patient Mode of arrival: Ambulatory Limitations: No Limitations - History of Present Illness Initial comments: This is a 30-year-old female nontoxic, well nourished in appearance, no acute signs of distress presents to the ED with c/o of abnormal menstrual cycle Several months. Patient stated that every since she has an IUD she has a normal mental cycle. Patient stated that for the past month she is having vaginal bleeding. Patient stated has some slight lightheadedness but denies any dizziness. Patient otherwise denies any other complaints or symptoms. Patient denies any abdominal or pelvic pain. Patient denies any vaginal discharge or foul odor. Patient denies any nausea, vomiting, chest pain, shortness of breathe, fever, chills, headache, stiff neck, numbness, tingling. Patient denies any urinary symptoms. Patient denies any allergies or PMH. MD Complaint: vaginal bleeding -: month(s) Severity scale (0 -10): 0 Improves with: none Worsens with: none Are you Now?: No Associated Symptoms: vaginal bleeding. denies: vaginal discharge, abdominal pain, nausea/vomiting, fever/chills, headaches, loss of appetite, dysuria, hematuria, rash, seizure, shortness of breath, syncope, weakness - Related Data Previous Rx's Medication Instructions Recorded Last Taken Type Acetaminophen/Codeine [Tylenol 1 tab PO Q6H PRN 3 Days #12 tab 03/16/19 Unknown Rx /Codeine # 3 tab] Ketorolac [Toradol] 10 mg PO Q6H PRN #20 tablet 03/16/19 Unknown Rx cephALEXin [Keflex] 500 mg PO Q6HR #40 cap 03/16/19 Unknown Rx Ciprofloxacin HCl [Ciprofloxacin 500 mg PO Q12HR #20 tab 07/07/19 Unknown Rx TAB] Phenazopyridine [Pyridium] 200 mg PO TID #10 tab 07/07/19 Unknown Rx cephALEXin [Keflex] 500 mg PO Q8HR #21 cap 11/28/20 Unknown Rx Allergies Allergy/AdvReac Type Severity Reaction Status Date / Time No Known Allergies Allergy Verified 03/16/19 16:27 ED Review of Systems ROS: Stated complaint: VAGINAL BLEEDING Other details as noted in HPI Comment: All other systems reviewed and negative Constitutional: denies: chills, fever Eyes: denies: eye pain, eye discharge, vision change ENT: denies: ear pain, throat pain Respiratory: denies: cough, shortness of breath, wheezing Cardiovascular: denies: chest pain, palpitations Endocrine: no symptoms reported Gastrointestinal: denies: abdominal pain, nausea, diarrhea Genitourinary: abnormal menses. denies: urgency, dysuria, discharge Musculoskeletal: denies: back pain, joint swelling, arthralgia Skin: denies: rash, lesions Neurological: denies: headache, weakness, paresthesias Psychiatric: denies: anxiety, depression Hematological/Lymphatic: denies: easy bleeding, easy bruising ED Past Medical Hx - Past Medical History Previous Medical History?: No Hx Hypertension: No Hx Congestive Heart Failure: No Hx Diabetes: No Hx Deep Vein Thrombosis: No Hx Renal Disease: No Hx Sickle Cell Disease: No Hx Seizures: No Hx Asthma: No Hx COPD: No Hx HIV: No - Surgical History Past Surgical History?: Yes Additional Surgical History: D&C for - Social History Smoking Status: Never Smoker Substance Use Type: None - Medications Home Medications: Home Medications Medication Instructions Recorded Confirmed Last Taken Type Acetaminophen/Codeine [Tylenol 1 tab PO Q6H PRN 3 Days #12 tab 03/16/19 Unknown Rx /Codeine # 3 tab] Ketorolac [Toradol] 10 mg PO Q6H PRN #20 tablet 03/16/19 Unknown Rx cephALEXin [Keflex] 500 mg PO Q6HR #40 cap 03/16/19 Unknown Rx Ciprofloxacin HCl [Ciprofloxacin 500 mg PO Q12HR #20 tab 07/07/19 Unknown Rx TAB] Phenazopyridine [Pyridium] 200 mg PO TID #10 tab 07/07/19 Unknown Rx cephALEXin [Keflex] 500 mg PO Q8HR #21 cap 11/28/20 Unknown Rx ED Physical Exam - General Limitations: No Limitations General appearance: alert, in no apparent distress - Head Head exam: Present: atraumatic, normocephalic - Eye Eye exam: Present: normal appearance - Neck Neck exam: Present: normal inspection, full ROM - Respiratory Respiratory exam: Absent: respiratory distress - Cardiovascular Cardiovascular Exam: Present: regular rate - GI/Abdominal GI/Abdominal exam: Present: soft, normal bowel sounds. Absent: distended, tenderness, guarding, rebound, rigid, diminished bowel sounds - Extremities Exam Extremities exam: Present: full ROM - Back Exam Back exam: Present: full ROM - Neurological Exam Neurological exam: Present: alert, oriented X3, normal gait - Psychiatric Psychiatric exam: Present: normal affect, normal mood - Skin Skin exam: Present: warm, dry, intact, normal color. Absent: rash ED Course Vital Signs 11/28/20 03:50 Temperature 98.2 F Pulse Rate 97 H Respiratory 17 Rate Blood Pressure 139/94 O2 Sat by Pulse 94 Oximetry Vital Signs 11/28/20 03:50 Temperature 98.2 F Pulse Rate 97 H Respiratory 17 Rate Blood Pressure 139/94 O2 Sat by Pulse 94 Oximetry - Reevaluation(s) Reevaluation #1: 11/28/20 04:57 Patient is speaking in full sentences with no signs of distress noted. ED Medical Decision Making - Lab Data Result diagrams: 11/28/20 03:53 11/28/20 03:53 Lab Results 11/28/20 11/28/20 11/28/20 Range/Units 03:53 03:53 03:53 WBC 6.5 (4.5-11.0) K/mm3 RBC 4.55 (3.65-5.03) M/mm3 Hgb 12.4 (10.1-14.3) gm/dl Hct 38.2 (30.3-42.9) % MCV 84 (79-97) fl MCH 27 L (28-32) pg MCHC 32 (30-34) % RDW 15.1 (13.2-15.2) % Plt Count 267 (140-440) K/mm3 Lymph % (Auto) 23.2 (13.4-35.0) % [place] % (Auto) 2.5 (0.0-7.3) % Eos % (Auto) 6.0 H (0.0-4.3) % Baso % (Auto) 0.0 (0.0-1.8) % Lymph # (Auto) 1.5 (1.2-5.4) K/mm3 [place] # (Auto) 0.2 (0.0-0.8) K/mm3 Eos # (Auto) 0.4 (0.0-0.4) K/mm3 Baso # (Auto) 0.0 (0.0-0.1) K/mm3 Seg Neutrophils % 68.5 (40.0-70.0) % Seg Neutrophils # 4.2 (1.8-7.7) K/mm3 Sodium 138 (137-145) mmol/L Potassium 4.2 (3.6-5.0) mmol/L Chloride 103.8 (98-107) mmol/L Carbon Dioxide 25 (22-30) mmol/L Anion Gap 13 mmol/L BUN 14 (7-17) mg/dL Creatinine 0.6 (0.6-1.2) mg/dL Estimated GFR > 60 ml/min BUN/Creatinine Ratio 23 % Glucose 105 H (65-100) mg/dL Calcium 8.9 (8.4-10.2) mg/dL HCG, Qual Negative (Negative) Urine Color (Yellow) Urine Turbidity (Clear) Urine pH (5.0-7.0) Ur Specific [place] (1.003-1.030) Urine Protein (Negative) mg/dL Urine Glucose (UA) (Negative) mg/dL Urine Ketones (Negative) mg/dL Urine Blood (Negative) Urine Nitrite (Negative) Urine Bilirubin (Negative) Urine Urobilinogen (<2.0) mg/dL Ur Leukocyte Esterase (Negative) Urine WBC (Auto) (0.0-6.0) /HPF Urine RBC (Auto) (0.0-6.0) /HPF U Epithel Cells (Auto) (0-13.0) /HPF Urine Mucus /HPF 11/28/20 Range/Units Unknown WBC (4.5-11.0) K/mm3 RBC (3.65-5.03) M/mm3 Hgb (10.1-14.3) gm/dl Hct (30.3-42.9) % MCV (79-97) fl MCH (28-32) pg MCHC (30-34) % RDW (13.2-15.2) % Plt Count (140-440) K/mm3 Lymph % (Auto) (13.4-35.0) % [place] % (Auto) (0.0-7.3) % Eos % (Auto) (0.0-4.3) % Baso % (Auto) (0.0-1.8) % Lymph # (Auto) (1.2-5.4) K/mm3 [place] # (Auto) (0.0-0.8) K/mm3 Eos # (Auto) (0.0-0.4) K/mm3 Baso # (Auto) (0.0-0.1) K/mm3 Seg Neutrophils % (40.0-70.0) % Seg Neutrophils # (1.8-7.7) K/mm3 Sodium (137-145) mmol/L Potassium (3.6-5.0) mmol/L Chloride (98-107) mmol/L Carbon Dioxide (22-30) mmol/L Anion Gap mmol/L BUN (7-17) mg/dL Creatinine (0.6-1.2) mg/dL Estimated GFR ml/min BUN/Creatinine Ratio % Glucose (65-100) mg/dL Calcium (8.4-10.2) mg/dL HCG, Qual (Negative) Urine Color Yellow (Yellow) Urine Turbidity Slightly-cloudy (Clear) Urine pH 5.0 (5.0-7.0) Ur Specific [place] 1.027 (1.003-1.030) Urine Protein 100 mg/dl (Negative) mg/dL Urine Glucose (UA) Neg (Negative) mg/dL Urine Ketones Neg (Negative) mg/dL Urine Blood Lg (Negative) Urine Nitrite Neg (Negative) Urine Bilirubin Neg (Negative) Urine Urobilinogen < 2.0 (<2.0) mg/dL Ur Leukocyte Esterase Sm (Negative) Urine WBC (Auto) 50.0 H (0.0-6.0) /HPF Urine RBC (Auto) > 182.0 (0.0-6.0) /HPF U Epithel Cells (Auto) 11.0 (0-13.0) /HPF Urine Mucus 2+ /HPF - Medical Decision Making 30-year-old female that presents with abnormal mitral cycle with UTI. Patient is stable and was examined by me. Labs has been obtained. UA obtained. Patient is notified over the results with no questions noted by the patient. Patient be treated with Keflex. Vital signs are stable. Physical exam is unremarkable. Patient was instructed to follow-up with a [employer] doctor in 3-5 days or if symptoms worsen and continue return to emergency room as soon as possible. At time of discharge, the patient does not seem toxic or ill in appearance. No acute signs of distress noted. Patient agrees to discharge treatment plan of care. No further questions noted by the patient. Critical care attestation.: If time is entered above; I have spent that time in minutes in the direct care of this critically ill patient, excluding procedure time. ED Disposition Clinical Impression: Abnormal menstrual cycle UTI (urinary tract infection) Qualifiers: Urinary tract infection type: acute cystitis Hematuria presence: with hematuria Qualified Code(s): N30.01 - Acute cystitis with hematuria Disposition: TO HOME OR SELFCARE Is pt being admited?: No Does the pt Need Aspirin: No Condition: Stable Instructions: Urinary Tract Infection, Adult, [id number], Dysfunctional Uterine Bleeding Additional Instructions: Follow-up with a [facility] [employer] doctor in 3-5 days or if symptoms worsen and continue return to emergency room as soon as possible. Prescriptions: cephALEXin [Keflex] 500 mg PO Q8HR #21 cap Referrals: PRIMARY CAREMD [Primary Care Provider] - 3-5 Days [facility] [Provider Group] - 3-5 Days [facility] [Provider [facility]] - 3-5 Days Forms: Work/School Release Form(ED) Time of Disposition: 05:01
[2020-11-28 05:01] LABS: BUN/Creatinine Ratio 23
== END 2020-11-28 05:21 | disposition home or self-care (01) ==
LOC: ED 03:37
DX: N92.6 Irregular menstruation, unspecified (principal); N39.0 Urinary tract infection, site not specified; Z79.899 Other long term (current) drug therapy
CPT/HCPCS: 36415; 80048; 81001; 84703; 85025; 87086; 99283

== ENCOUNTER 2021-07-29 11:43 | Emergency (ER) | payer MEDICAID ==
--- NOTE | 2021-07-29 13:03 | Emergency Department Report ---
ED General Adult HPI - General Stated complaint: HEMMORROIDS,SWOLLEN ANKLES Time Seen by Provider: 07/29/21 12:48 - History of Present Illness Initial comments: Patient presents with multiple issues. She has had unilateral ankle swelling. This been present for the last several days intermittently. It does seem to wax and wane. This is only involving the left ankle. She was concerned that she might be diabetic. She does eat some salt. She has not noticed any right ankle swelling. There is no history of trauma. She has no pain associated with this. Patient is also here because she has a thrombosed external hemorrhoid. This is also been waxing and waning. It has been present intermittently for weeks, but worse over the last day or 2. She has tried using sitz bath. She has been using some topical cream. This does not seem to solve the problem. She denies being constipated lately. There has been blood on the toilet paper when she wipes, but no blood in the bowl. - Related Data Previous Rx's Medication Instructions Recorded Last Taken Type Acetaminophen/Codeine [Tylenol 1 tab PO Q6H PRN 3 Days #12 tab 03/16/19 Unknown Rx /Codeine # 3 tab] Ketorolac [Toradol] 10 mg PO Q6H PRN #20 tablet 03/16/19 Unknown Rx cephALEXin [Keflex] 500 mg PO Q6HR #40 cap 03/16/19 Unknown Rx Ciprofloxacin HCl [Ciprofloxacin 500 mg PO Q12HR #20 tab 07/07/19 Unknown Rx TAB] Phenazopyridine [Pyridium] 200 mg PO TID #10 tab 07/07/19 Unknown Rx cephALEXin [Keflex] 500 mg PO Q8HR #21 cap 11/28/20 Unknown Rx Docusate Sodium [Colace] 100 mg PO BID #20 capsule 07/29/21 Unknown Rx Hydrocortisone [Anucort-HC SUPPOS] 25 mg RC BID #20 supp.rect 07/29/21 Unknown Rx Allergies Allergy/AdvReac Type Severity Reaction Status Date / Time No Known Allergies Allergy Verified 03/16/19 16:27 ED Review of Systems ROS: Stated complaint: HEMMORROIDS,SWOLLEN ANKLES Other details as noted in HPI Comment: All other systems reviewed and negative Constitutional: denies: fever Eyes: denies: eye pain ENT: denies: throat pain Respiratory: denies: cough Cardiovascular: denies: chest pain Endocrine: denies: unexplained weight loss Gastrointestinal: denies: abdominal pain Genitourinary: denies: dysuria Musculoskeletal: denies: back pain Skin: denies: rash Neurological: denies: headache Hematological/Lymphatic: denies: easy bruising ED Past Medical Hx - Past Medical History Hx Hypertension: No Hx Congestive Heart Failure: No Hx Diabetes: No Hx Deep Vein Thrombosis: No Hx Renal Disease: No Hx Sickle Cell Disease: No Hx Seizures: No Hx Asthma: No Hx COPD: No Hx HIV: No - Surgical History Additional Surgical History: D&C for - Family History Family history: hypertension - Social History Smoking Status: Never Smoker Substance Use Type: None - Medications Home Medications: Home Medications Medication Instructions Recorded Confirmed Last Taken Type Acetaminophen/Codeine [Tylenol 1 tab PO Q6H PRN 3 Days #12 tab 03/16/19 Unknown Rx /Codeine # 3 tab] Ketorolac [Toradol] 10 mg PO Q6H PRN #20 tablet 03/16/19 Unknown Rx cephALEXin [Keflex] 500 mg PO Q6HR #40 cap 03/16/19 Unknown Rx Ciprofloxacin HCl [Ciprofloxacin 500 mg PO Q12HR #20 tab 07/07/19 Unknown Rx TAB] Phenazopyridine [Pyridium] 200 mg PO TID #10 tab 07/07/19 Unknown Rx cephALEXin [Keflex] 500 mg PO Q8HR #21 cap 11/28/20 Unknown Rx Docusate Sodium [Colace] 100 mg PO BID #20 capsule 07/29/21 Unknown Rx Hydrocortisone [Anucort-HC SUPPOS] 25 mg RC BID #20 supp.rect 07/29/21 Unknown Rx ED Physical Exam - General Limitations: Other (Pulse ox is noted and normal. Patient is not hypoxic.) General appearance: alert - Head Head exam: Present: atraumatic, normocephalic, normal inspection - Eye Eye exam: Present: normal appearance, EOMI. Absent: scleral icterus - ENT ENT exam: Present: normal exam, mucous membranes moist - Neck Neck exam: Present: normal inspection. Absent: meningismus - Respiratory Respiratory exam: Absent: respiratory distress - Cardiovascular Cardiovascular Exam: Present: regular rate, normal rhythm, other (Normal pulses) - GI/Abdominal GI/Abdominal exam: Present: other (Obese) - Rectal Rectal exam: Present: hemorrhoids (Thrombosed external hemorrhoid. Exam was completed with female printing services coordinator.) - Extremities Exam Extremities exam: Present: normal capillary refill. Absent: pedal edema, joint swelling - Back Exam Back exam: Present: full ROM - Neurological Exam Neurological exam: Present: alert, oriented X3, normal gait. Absent: motor sensory deficit - Psychiatric Psychiatric exam: Present: normal affect, normal mood - Skin Skin exam: Present: warm, dry ED Course - Reevaluation(s) Reevaluation #1: 07/29/21 13:16 Patient was seen as above. We offered to excise the thrombosed hemorrhoid. She declined. At this time, she was discharged. ED Medical Decision Making - Medical Decision Making Patient presented with unilateral ankle edema that seems to wax and wane. There is no evidence of DVT. This is not consistent with DVT. Certainly, there is no warmth or erythema suggestive of an infected joint. She does not have a skin cellulitis. There is no edema presently. This is not been bilateral. I do not believe this represents any type of volume overload. She also had a partially thrombosed external hemorrhoid. There is no evidence of abscess. We did offer to excise this. She declined. She stated she wanted medical management. Patient was treated symptomatically. She was referred to a surgeon for ongoing evaluation and consideration of surgical intervention as needed. Critical Care Time: No Critical care attestation.: If time is entered above; I have spent that time in minutes in the direct care of this critically ill patient, excluding procedure time. ED Disposition Clinical Impression: Thrombosed hemorrhoids, Left ankle swelling Disposition: 01 HOME / SELF CARE / HOMELESS Is pt being admited?: No Does the pt Need Aspirin: No Condition: Stable Instructions: Hemorrhoids, [id number], Nonsurgical Procedures for Hemorrhoids, Care After Additional Instructions: Continue to do warm compresses and warm soaks for the hemorrhoid. Ice and elevate the left ankle. Return for problems. If you change your mind about hemorrhoid excision, please return. Follow-up as directed. Prescriptions: Hydrocortisone [Anucort-HC SUPPOS] 25 mg RC BID #20 supp.rect Docusate Sodium [Colace] 100 mg PO BID #20 capsule Referrals: JEROD ELLIOTT MD [Referring] - 3-5 Days MELODY NEELY MD [Staff Physician] - 3-5 Days ANH,PIERCE D, MD [Staff Physician] - 3-5 Days
[2021-07-29 13:17] VITALS: BP 128/87
== END 2021-07-29 13:38 | disposition home or self-care (01) ==
LOC: ED 11:43
DX: K64.5 Perianal venous thrombosis (principal); M25.472 Effusion, left ankle
CPT/HCPCS: 82962; 99282